=== PATIENT | female | born 1990 | race Two or more races ===

== ENCOUNTER 2018-11-28 13:00 | Outpatient (CLI) | payer OTHER ==
[2018-11-28] MEDS ORDERED: BUFFERED LIDOCAINE 10 ML SYRINGE ONE (13:26)
[2018-11-28] MEDS ORDERED: IOTHALAMATE MEGLUMINE 50 ML VIAL ONE (13:27)
[2018-11-28] MEDS ORDERED: GADOPENTETATE DIMEGLUMINE 5 ML VIAL IVP ONE ×2 (13:27→15:04)
[2018-11-28] MEDS ORDERED: IOTHALAMATE MEGLUMINE 50 ML VIAL IVP ONE (15:04)
[2018-11-28] MEDS ORDERED: BUFFERED LIDOCAINE 10 ML SYRINGE IU ONE (15:04)
--- NOTE | 2018-11-28 16:07 | MRI Report ---
Reason: PAIN IN LEFT ANKLE Procedure Date: 11/28/2018 Accession Number: [id number] / [id number] Procedure: MRI - Arthrogram Ankle LT CPT Code: FULL RESULT: EXAM: LEFT ANKLE MRI ARTHROGRAM WITH CONTRAST EXAM DATE: 11/28/2018 03:33 PM. CLINICAL HISTORY: Pain in left ankle. COMPARISON: Radiographs 10/04/2018. TECHNIQUE: Multiplanar, multisequence T1-weighted and fluid-sensitive sequences of the ankle after an arthrographic injection of dilute gadolinium, dictated under a separate exam. Other: None. FINDINGS: Bones: No fracture. Minimal anterior subluxation of the talus relative to the tibial plafond. Articular Cartilage: Minimal cartilage loss of the tibiotalar joint without focal defect at the talar dome. Ligaments: Anterior and posterior tibiofibular ligaments intact. Complete rupture of the anterior talofibular ligament. Diffuse distortion at the calcaneal fibular ligament. A few fibers may remain intact. Distortion and some contrast imbibition at the posterior talofibular ligament. Subtle edema in the deep aspect deltoid ligament and distal aspect spring ligament. Anterior Tendons: The tibialis anterior, extensor hallucis longus, and extensor digitorum longus tendons are unremarkable. Medial Tendons: The tibialis posterior, flexor digitorum longus, and flexor hallucis longus tendons are unremarkable. Lateral Tendons: The peroneus brevis and longus are unremarkable. Achilles Tendon: Minimal thickening throughout. Musculature: No edema or fatty atrophy. Other: Tibiotalar joint diffusely distended. Suggestion of mild synovitis. No focal intra-articular body. The contents of the sinus tarsi and tarsal tunnel are unremarkable. No plantar fasciitis. The subcutaneous tissues are unremarkable. IMPRESSION: 1. Complete rupture anterior talofibular ligament. 2. Near complete to complete rupture calcaneofibular ligament. 3. Mild to moderate sprain and partial-thickness tear posterior talofibular ligament. 4. Mild sprains deltoid and spring ligaments. 5. Minimal Achilles tendinopathy. 6. Minimal cartilage loss tibiotalar joint without focal osteochondral lesion. [facility]
--- NOTE | 2018-11-28 17:24 | XRAY Report ---
Reason: PAIN IN LEFT ANKLE Procedure Date: 11/28/2018 Accession Number: [id number] / [id number] Procedure: FL - Arthrogram Needle Placement CPT Code: FULL RESULT: EXAM: LEFT ANKLE Arthrographic Injection with Fluoroscopic Guidance EXAM DATE: 11/28/2018 01:55 PM. CLINICAL HISTORY: Pain in left ankle. COMPARISON: None. TECHNIQUE: The risks, benefits, and alternatives of the procedure were discussed with the patient. All questions were answered. Written and verbal consent were obtained. The radiocarpal joint was marked under fluoroscopy and prepped and draped in a sterile manner. Preprocedural palpation of dorsalis pedis artery was performed, although the artery was not easily palpable. Local anesthesia was performed with 1% lidocaine; with this injection, patient had an episode of shooting type pain to several toes which persisted for several minutes, but had abated by the end of the exam and patient otherwise tolerated the procedure well. A 25-gauge needle was then inserted into the lateral tibiotalar joint. 7 mL of a solution containing 25% 1% lidocaine, 25% iodinated contrast, and a 1:200 dilution of gadolinium contrast in sterile saline was then injected. The needle was removed without immediate complication. Other: None. Fluoroscopy Time: 2 minutes 11 seconds. Number of Images: 6. FINDINGS: Bones and joints: No fracture or subluxation. Injection: Fluoroscopic images demonstrate needle placement and contrast in the ankle joint. No contrast extravasation outside of the ankle joint. IMPRESSION: Successful fluoroscopically guided arthrographic injection of the left ankle. RAD[facility]
== END 2018-11-28 13:01 | disposition home or self-care (01) ==
LOC: DI 13:00
PROVIDERS: ATTEND Orthopaedic Surgery
DX: S93.492A Sprain of other ligament of left ankle, initial encounter (principal); S93.412A Sprain of calcaneofibular ligament of left ankle, initial encounter; S93.422A Sprain of deltoid ligament of left ankle, initial encounter; M67.972 Unspecified disorder of synovium and tendon, left ankle and foot
CPT/HCPCS: 27648; 73722; 77002; Q9961

== ENCOUNTER 2018-12-12 20:42 | Emergency (ER) | payer OTHER ==
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
[2018-12-12] MEDS ORDERED: CYCLOBENZAPRINE 10 MG TABLET PO STA (22:41)
[2018-12-12 22:51] VITALS: BP 103/65
== END 2018-12-12 22:52 | disposition home or self-care (01) ==
LOC: ED 20:42
DX: S13.9XXA Sprain of joints and ligaments of unspecified parts of neck, initial encounter (principal); M79.604 Pain in right leg; V40.0XXA Car driver injured in collision with pedestrian or animal in nontraffic accident, initial encounter; Y92.410 Unspecified street and highway as the place of occurrence of the external cause; M79.7 Fibromyalgia
CPT/HCPCS: 72040; 99283; A9270

== ENCOUNTER 2019-07-06 18:39 | Emergency (ER) | payer OTHER ==
[2019-07-06 19:15] LABS: BILIRUBIN,URINE NEGATIVE (NEGATIVE); GLUCOSE, URINE (UA) NEGATIVE (NEGATIVE); KETONES,URINE (UA) NEGATIVE (NEGATIVE); LEUKOCYTE ESTERASE, URINE NEGATIVE (NEGATIVE); NITRITE,URINE NEGATIVE (NEGATIVE); OCCULT BLOOD,URINE TRACE-INTA (NEGATIVE); PROTEIN,URINE NEGATIVE (NEGATIVE); UROBILINOGEN,URINE 0.2 (NORMAL) E.U./dL (NORMAL)
--- NOTE | 2019-07-06 19:15 | ED Physician Documentation ---
PD HPI CHEST PAIN - Stated complaint Stated Complaint: CP - Chief complaint Chief Complaint: Cardiac - History obtained from History obtained from: Patient (28-year-old woman with a lot of anxiety issues for the last month has noted that at times it seems like the veins in both of her arms are more prominent and last night she even noticed it on her and her chest wall. It was not painful and there was no associated shortness of breath. Today she had a short substernal chest pain while walking that felt like previous episodes of anxiety. Denies , pedal edema, calf pain) Review of Systems Constitutional: denies: Fever, Chills Throat: denies: Dental pain / toothache, Sore throat Cardiac: reports: Chest pain / pressure, Palpitations. denies: Pedal edema, Calf pain PD PAST MEDICAL HISTORY - Past Medical History Past Medical History: Yes Cardiovascular: None Respiratory: None Neuro: None Endocrine/Autoimmune: None GI: None [employer] COLD ROLLING: None : None HEENT: None Psych: Eating disorder Musculoskeletal: Fibromyalgia, Fatigue Derm: None - Past Surgical History Past Surgical History: No - Present Medications Home Medications: Ambulatory Orders Medication Instructions Recorded Confirmed Topiramate [Topamax] 75 mg ORAL DAILY 11/17/18 11/17/18 lamoTRIgine [Lamictal Xr] 550 mg PO 11/17/18 Cyclobenzaprine [Flexeril] 10 mg PO TID PRN #20 tablet 12/12/18 - Allergies Allergies/Adverse Reactions: Allergies Allergy/AdvReac Type Severity Reaction Status Date / Time iron Allergy Edema Verified 12/12/18 20:53 - Social History Does the pt smoke?: No Smoking Status: Never smoker Does the pt drink ETOH?: No Does the pt have substance abuse?: No - Immunizations Immunizations are current?: Yes - POLST Patient has POLST: No PD ED PE NORMAL - Vitals Vital signs reviewed: Yes - General General: Alert and oriented X 3, No acute distress - HEENT HEENT: PERRL, EOMI - Neck Neck: Supple, no meningeal sign, No bony TTP - Cardiac Cardiac: RRR, No murmur - Respiratory Respiratory: No respiratory distress, Clear bilaterally - Abdomen Abdomen: Non tender - Extremities Extremities: No edema, No calf tenderness / cord - Neuro Neuro: Alert and oriented X 3, Normal speech Results - Vitals Vitals: Vital Signs - 24 hr 07/06/19 07/06/19 18:47 19:02 Temperature 36.2 C L 36.5 C Heart Rate 92 90 Respiratory 14 14 Rate Blood Pressure 103/67 104/68 O2 Saturation 98 98 Oxygen O2 Source Room air - EKG (time done) 1853 Rate: Rate (enter#) (80) Rhythm: NSR [place]: Normal Intervals: Normal IA QRS: Normal Ischemia: Normal ST segments Computer interpretation: Agree with computer - Labs Labs: Laboratory Tests 07/06/19 07/06/19 07/06/19 19:08 19:28 19:28 WBC 5.5 RBC 3.96 L Hgb 11.9 L Hct 37.9 MCV 95.7 MCH 30.1 MCHC 31.4 L RDW 12.9 Plt Count 235 MPV 9.3 Neut # (Auto) 3.8 Lymph # (Auto) 1.2 L Pierce # (Auto) 0.4 Eos # (Auto) 0.2 Baso # (Auto) 0.1 Absolute Nucleated RBC 0.00 Nucleated RBC % 0.0 Sodium 139 Potassium 3.7 Chloride 104 Carbon Dioxide 26 Anion Gap 9.0 BUN 10 Creatinine 0.8 Estimated GFR (MDRD) 86 L Glucose 87 Calcium 8.7 Total Bilirubin 0.7 AST 19 ALT 11 Alkaline Phosphatase 66 Troponin I High Sens Total Protein 6.8 Albumin 3.9 Globulin 2.9 Albumin/Globulin Ratio 1.3 Lipase 53 H Urine Color YELLOW Urine Clarity CLEAR Urine pH 6.0 Ur Specific [place] <=1.005 Urine Protein NEGATIVE Urine Glucose (UA) NEGATIVE Urine Ketones NEGATIVE Urine Occult Blood TRACE-INTA Urine Nitrite NEGATIVE Urine Bilirubin NEGATIVE Urine Urobilinogen 0.2 (NORMAL) Ur Leukocyte Esterase NEGATIVE Ur Microscopic Review NOT INDICATED Urine Culture Comments NOT INDICATED Urine HCG, Qual NEGATIVE 07/06/19 19:28 WBC RBC Hgb Hct MCV MCH MCHC RDW Plt Count MPV Neut # (Auto) Lymph # (Auto) Pierce # (Auto) Eos # (Auto) Baso # (Auto) Absolute Nucleated RBC Nucleated RBC % Sodium Potassium Chloride Carbon Dioxide Anion Gap BUN Creatinine Estimated GFR (MDRD) Glucose Calcium Total Bilirubin AST ALT Alkaline Phosphatase Troponin I High Sens < 2.3 L Total Protein Albumin Globulin Albumin/Globulin Ratio Lipase Urine Color Urine Clarity Urine pH Ur Specific [place] Urine Protein Urine Glucose (UA) Urine Ketones Urine Occult Blood Urine Nitrite Urine Bilirubin Urine Urobilinogen Ur Leukocyte Esterase Ur Microscopic Review Urine Culture Comments Urine HCG, Qual PD MEDICAL DECISION MAKING - ED course ED course: heart zero perc neg Departure - Departure Disposition: 01 Home, Self Care Clinical Impression: Atypical chest pain Condition: Good Record reviewed to determine appropriate education?: Yes Instructions: ED Chest Pain Atypical Unkn Cause Comments[place] to further evaluate the increased venous dilatation in your arms and chest wall that you have noticed. Return for new or worsening symptoms.
[2019-07-06 19:19] LABS: CLARITY,URINE CLEAR (CLEAR); HCG UR QUAL NEGATIVE
[2019-07-06 19:33] LABS: BASOPHILS # (AUTO) 0.1 10^3/uL (0.0-0.1); BASOPHILS % (AUTO) 0.9 %; EOSINOPHILS # (AUTO) 0.2 10^3/uL (0.0-0.7); EOSINOPHILS % (AUTO) 2.7 %; HGB - HEMOGLOBIN 11.9 g/dL (12.0-16.0); LYMPHOCYTES # (AUTO) 1.2 10^3/uL (1.5-3.5); LYMPHOCYTES % (AUTO) 21.3 %; MEAN CORPUSCULAR HEMOGLOBIN 30.1 pg (27.0-31.0); MEAN CORPUSCULAR HGB CONC 31.4 g/dL (32.0-36.0); MEAN CORPUSCULAR VOLUME 95.7 fL (81.0-99.0); MEAN PLATELET VOLUME 9.3 fL (7.9-10.8); MONOCYTES # (AUTO) 0.4 10^3/uL (0.0-1.0); MONOCYTES % (AUTO) 7.1 %; NEUTROPHILS # (AUTO) 3.8 10^3/uL (1.5-6.6); NEUTROPHILS % (AUTO) 67.8 %; PLT - PLATELET COUNT 235 10^3/uL (130-450); RED BLOOD COUNT 3.96 10^6/uL (4.20-5.40); RED CELL DISTRIBUTION WIDTH 12.9 % (12.0-15.0); WHITE BLOOD COUNT 5.5 x10^3/uL (4.8-10.8)
[2019-07-06 19:48] LABS: ALBUMIN 3.9 g/dL (3.2-5.5); ALBUMIN/GLOBULIN RATIO 1.3 (1.0-2.2); BILIRUBIN,TOTAL 0.7 mg/dL (0.2-1.0); CALCIUM 8.7 mg/dL (8.5-10.3); CREATININE 0.8 mg/dL (0.4-1.0); TOTAL PROTEIN 6.8 g/dL (6.7-8.2)
--- NOTE | 2019-07-06 19:53 | XRAY Report ---
Reason: chest pain Procedure Date: 07/06/2019 Accession Number: [id number] / [id number] Procedure: XR - Chest 1 View X-Ray CPT Code: 11502 Final Report FULL RESULT: EXAM: CHEST RADIOGRAPHY EXAM DATE: 07/06/2019 07:45 PM. CLINICAL HISTORY: Chest pain. COMPARISON: None. TECHNIQUE: 1 view. FINDINGS: Lungs/Pleura: No focal opacities evident. No pleural effusion. No pneumothorax. Mediastinum: Within exam limitations, the cardiomediastinal contour is normal. Other: None. IMPRESSION: Unremarkable portable upright AP view of the chest. [facility]
[2019-07-06 20:28] VITALS: BP 106/65
== END 2019-07-06 20:34 | disposition home or self-care (01) ==
LOC: ED 18:39
DX: R07.89 Other chest pain (principal)
CPT/HCPCS: 36415; 71045; 80053; 81001; 81003; 81025; 83690; 84484; 85025; 87086; 93005; 99284

== ENCOUNTER 2019-07-26 13:40 | Outpatient (CLI) | payer OTHER | END 2019-07-26 13:41 | disposition home or self-care (01) | LOC: DI 13:40 | PROVIDERS: ATTEND Registered Nurse Diabetes Educator | DX: I51.7 Cardiomegaly (principal); R07.89 Other chest pain | CPT/HCPCS: 93306 ==